=== PATIENT | female | born 1940 | race Caucasian/White ===

== ENCOUNTER 2017-11-03 20:35 | Observation (INO) | payer MEDICARE, OTHER ==
[~2017-11-03] VITALS: Ht 162.6 cm; Wt 45.0 kg
[2017-11-03 20:35] VITALS: BP_SYST 138; BP_SYST 167; BP_DIAS 66; BP_DIAS 87; PULSE 92; RESP 18; O2SAT 98; O2SAT 99
[~2017-11-03 20:35] MED LIST: AMLO5 PO; ENOX30P SQ; HYDR25TA5 PO; LISI10TA3 PO; MELA1TAB18 PO; SENN1TAB PO; TRAM50 PO
[2017-11-03] MEDS ORDERED: SODIUM CHLOR 0.9% 250 ML INJ 250 ML IV ONE (20:45)
[2017-11-03] MEDS ORDERED: SODIUM CHLORIDE 0.9% FLUSH 10 ML FLUSH IVF PRN (20:45)
[2017-11-03] MEDS ORDERED: ONDANSETRON HCL 4 MG/2 ML VIAL IV PUSH ONE (20:45)
[2017-11-03] MEDS ORDERED: NITROGLYCERIN 2% OINT 1 GM PACKET TOP ONE (20:45)
[2017-11-03] MEDS ORDERED: MORPHINE SULFATE 2 MG/ML INJ IV PUSH ONE ×3 (20:45→21:45)
--- NOTE | 2017-11-03 20:48 | PD ---
HPI Chief Complaint: Chest Pain Time Seen by Provider: 20:38 Travel History International Travel<30 days: No Contact w/Intl Traveler<30days: No Traveled to known affect area: No History of Present Illness HPI 77-year-old female presents to the emergency department from home for evaluation of sudden onset of retrosternal chest pain left-sided chest pain and left upper abdominal pain with prior history of thoracic aneurysm and abdominal aortic aneurysm. According to the patient who relays some of her history she has had previous repair of thoracic aortic aneurysm and continues to have abdominal aortic aneurysm that is being monitored. Last evaluation reportedly the aneurysm was 3 cm in size. Patient is unable to tell me when the last evaluation was performed. Patient's wall and floor tiler is Dr. Rosario. Patient has history of CAD with previous CABG CVA abdominal aortic aneurysm with report by medical record of prior repair valvular heart disease with valve replacement and hypertension. Patient is presently on Norvasc. Patient is not currently on a blood thinning agent reportedly. Patient did take 81 mg of aspirin prior to arrival to the emergency department and fire department provided the patient with a one-time dose of 81 mg aspirin and 1 sublingual nitroglycerin. Patient had a hypotensive response to the nitroglycerin was giving a 200 cc bolus of normal saline and presents normotensive with symmetric blood pressures bilaterally per EMS 120/80 right upper extremity and left upper extremity pain is reported as 10 over 10 in intensity at time of initial evaluation patient personally reports pain of 8/10 in intensity at this time and states that she feels improved. There is been no nausea or vomiting. Patient does complain of tenderness to the upper abdomen. An does complain of chest pain. No report of referred pain to the back mid scapular neck jaw or upper extremity's. PFSH Past Medical History Narrative Medical CABG AAA with reported repair valvular heart disease with valve replacement hysterectomy cardiac catheterization hypertension no tobacco use at this time previous history of daily tobacco use for 60 years occasional alcohol use; nursing notes reviewed Cardiac Catheterization: Yes Cardiovascular Problems: Yes Cerebrovascular Accident: Yes Diminished Hearing: No Endocrine: No Hypertension: Yes Musculoskeletal: Yes Neurologic: No Psychiatric: No Reproductive: No Respiratory: No Menopausal: Yes Past Surgical History Abdominal Aneurysm Repair: Yes Cardiac Surgery: Yes Gynecologic Surgery: Yes Hysterectomy: Yes Thoracic Surgery: No Valve Replacement: Yes Social History Alcohol Use: Yes ("A BEER A DAY") Tobacco Use: Yes (1/2PPD) Substance Use: No Allergies-Medications (Allergen,Severity, Reaction): Coded Allergies: codeine (Unverified Allergy, Severe, Wheezing, 11/03/17) Reported Meds & Prescriptions Reported Meds & Active Scripts Active Reported Amoxicillin 500 Mg Tab 500 Mg PO QID Aspirin 81 Mg Chew 81 Mg CHEW ONCE Aleve Arthritis (Naproxen Sodium) 220 Mg Tab 220 Mg PO BID Lovastatin 10 Mg Tab 10 Mg PO DAILY Amlodipine (Amlodipine Besylate) 10 Mg Tab 10 Mg PO DAILY Review of Systems Except as stated in HPI: all other systems reviewed are Neg Physical Exam Narrative GENERAL: Well-developed thin female in obvious discomfort no respiratory distress GCS 15 SKIN: Warm and dry. HEAD: Normocephalic. EYES: No scleral icterus. No injection or drainage. NECK: Supple, trachea midline. No JVD or lymphadenopathy. CARDIOVASCULAR: Regular rate and rhythm with 5/6 holosystolic murmur, gallops, or rubs. RESPIRATORY: Breath sounds equal bilaterally. No accessory muscle use. GASTROINTESTINAL: Abdomen soft, tender epigastric and left upper quadrant without palpable pulsatile mass, nondistended. MUSCULOSKELETAL: No cyanosis, or edema. Radial pulses 2+ to palpation bilateral dorsalis pedis pulses 2+ to palpation. BACK: Nontender without obvious deformity. No CVA tenderness. Data Data Last Documented VS Vital Signs Date Time Temp Pulse Resp B/P (MAP) Pulse Ox O2 Delivery O2 Flow Rate FiO2 11/03/17 21:36 87 16 151/79 (103) 100 Nasal Cannula 2.00 147/76 (99) Orders Orders Electrocardiogram (11/03/17 20:38) Basic Metabolic Panel (Bmp) (11/03/17 20:38) Ckmb (Isoenzyme) Profile (11/03/17 20:38) Complete Blood Count With Diff (11/03/17 20:38) Magnesium (Mg) (11/03/17 20:38) Prothrombin Time / Inr (Pt) (11/03/17 20:38) Act Partial Throm Time (Ptt) (11/03/17 20:38) Troponin I (11/03/17 20:38) Ecg Monitoring (11/03/17 20:38) Bilateral Bp Monitoring (11/03/17 20:38) Iv Access Insert/Monitor (11/03/17 20:38) Oximetry (11/03/17 20:38) Oxygen Administration (11/03/17 20:38) Nitroglycerin 2% Oint (Nitroglycerin 2% (11/03/17 20:45) Sodium Chloride 0.9% Flush (Ns Flush) (11/03/17 20:45) Cta Thor Abd Aorta W Iv C W3d (11/03/17 20:38) Ondansetron Inj (Zofran Inj) (11/03/17 20:45) Morphine Inj (Morphine Inj) (11/03/17 20:45) Type And Screen (11/03/17 20:38) Blood Product Administration (11/03/17 20:38) Sodium Chlor 0.9% 250 Ml Inj (Ns 250 Ml (11/03/17 20:45) Chest, Single Ap (11/03/17 20:41) Morphine Inj (Morphine Inj) (11/03/17 21:00) Iohexol 350 Inj (Omnipaque 350 Inj) (11/03/17 21:05) CKMB (11/03/17 20:46) CKMB% (11/03/17 20:46) Labetalol Inj (Trandate Inj) (11/03/17 21:45) Nitroglycerin-D5w 50 Mg/250 Ml (Nitrogly (11/03/17 21:45) Morphine Inj (Morphine Inj) (11/03/17 21:45) Admit Order (Ed Use Only) (11/03/17 ) Clinic Lpn / Telemetry MARION.Q8H (11/03/17 22:24) Diet Heart Healthy (11/04/17 Breakfast) Activity Bed Rest (11/03/17 22:24) Notify Dr: Other (11/03/17 22:24) Consult Vascular Surgery (11/03/17 ) Labs Laboratory Tests Test 11/03/17 20:46 White Blood Count 8.0 TH/MM3 Red Blood Count 3.39 MIL/MM3 Hemoglobin 9.9 GM/DL Hematocrit 29.5 % Mean Corpuscular Volume 87.1 FL Mean Corpuscular Hemoglobin 29.1 PG Mean Corpuscular Hemoglobin Concent 33.4 % Red Cell Distribution Width 13.7 % Platelet Count 220 TH/MM3 Mean Platelet Volume 7.7 FL Neutrophils (%) (Auto) 68.0 % Lymphocytes (%) (Auto) 20.3 % Monocytes (%) (Auto) 8.6 % Eosinophils (%) (Auto) 1.1 % Basophils (%) (Auto) 2.0 % Neutrophils # (Auto) 5.5 TH/MM3 Lymphocytes # (Auto) 1.6 TH/MM3 Monocytes # (Auto) 0.7 TH/MM3 Eosinophils # (Auto) 0.1 TH/MM3 Basophils # (Auto) 0.2 TH/MM3 CBC Comment DIFF FINAL Differential Comment Prothrombin Time 10.8 SEC Prothromb Time International Ratio 1.1 RATIO Activated Partial Thromboplast Time 21.5 SEC Blood Urea Nitrogen 36 MG/DL Creatinine 0.94 MG/DL Random Glucose 156 MG/DL Calcium Level 9.0 MG/DL Magnesium Level 2.3 MG/DL Sodium Level 139 MEQ/L Potassium Level 3.8 MEQ/L Chloride Level 102 MEQ/L Carbon Dioxide Level 30.2 MEQ/L Anion Gap 7 MEQ/L Estimat Glomerular Filtration Rate 58 ML/MIN Total Creatine Kinase 129 U/L Creatine Kinase MB 2.0 NG/ML Troponin I LESS THAN 0.02 NG/ML MDM Medical Decision Making Medical Screen Exam Complete: Yes Emergency Medical Condition: Yes Medical Record Reviewed: Yes Interpretation(s) EKG: Normal sinus rhythm rate 93 left ventricular hypertrophy with nonspecific ST-T changes artifact present no acute ST elevation or injury pattern change noted Last Impressions Chest X-Ray 11/03/172040 Signed Impressions: Service Date/Time: Friday, November 03, 2017 20:46 - CONCLUSION: 1. Stable thoracic aortic stent graft 2. Left subclavian stent. 3. Prosthetic aortic valve 4. No evidence of acute cardiopulmonary process. Easton Daniel MD Aorta CTA 11/03/172037 Signed Impressions: Service Date/Time: Friday, November 03, 2017 20:58 - CONCLUSION: 1. 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 2. Left subclavian stent. 3. Distal descending thoracic aorta abdominal aortic aneurysm with measurements given above. 4. Note a subacute rupture. 5. No evidence of acute cardiac pulmonary process or acute process in the abdomen. Easton Daniel MD CBC & BMP Diagram 11/03/17 20:46 Calcium Level 9.0, Magnesium Level 2.3 Vital Signs Date Time Temp Pulse Resp B/P (MAP) Pulse Ox O2 Delivery O2 Flow Rate FiO2 11/03/17 21:36 87 16 151/79 (103) 100 Nasal Cannula 2.00 147/76 (99) 11/03/17 20:35 92 18 167/87 (113) 98 Nasal Cannula 2.00 138/66 (90) 11/03/17 20:35 99 Nasal Cannula 2.00 11/03/17 20:35 18 99 Nasal Cannula 2.00 Troponin I: Less than 0.02, not elevated Differential Diagnosis Chest pain, ACS, CT, aneurysm rupture, aortic dissection, PE, pneumothorax, cholecystitis, pancreatitis, musculoskeletal pain Narrative Course 9:03 PM patient's case discussed with her power of traffic law attorney health care surrogate daughter Belgica Simons -- according to the daughter the patient has a history of thoracic aortic aneurysm repair as well as pig valve aortic valve replacement numerous years ago most recent evaluation of abdominal aortic aneurysm was 2 years ago at which time the aneurysm was measured at 3.8 cm. According to the daughter the patient was evaluated at [facility] by an aorta vascular specialist 2 years ago and at that time the specialist informed the daughter and the patient that elective repair of the aneurysm was not a feasible plan for the patient as she would not survive surgery as that was conveyed to the patient and the power of traffic law attorney daughter he was determined at that time by the family by the power of traffic law attorney/health care surrogate daughter Belgica Simons and the patient that she was to have no surgical intervention regarding the abdominal aortic aneurysm however the patient's daughter and power of traffic law attorney at this time states that should this become an emergency and the risk of her dying versus going an interventional a for potential repair of the aneurysm is eminent that the daughter the power of traffic law attorney states she wants everything done including emergency intervention and has been discussed with the daughter that she has are made the decision based on the aortic aneurysm specialist at [facility] that she is not a survivable canned electively with all things him optimal condition and the decision at that time was to be a nonsurgical candidate and no surgical intervention however the daughter Belgica Simons states that she does want surgery emergently if indicated or necessary. At 9:30 PM patient has returned from CAT scan with stable blood pressure in fact blood pressure again has increased Nitropaste increased to 1 inch to chest wall and additional morphine 2 mg IV administered. Patient rates pain 4/10 in intensity At 10:30 PM patient's daughter informed of all imaging results and information regarding vascular surgeon recommendation patient will be admitted for observation to have his service Critical Care Narrative Aggregate critical care time was 35 minutes. Time to perform other separately billable procedures was not included in the critical care time. My time did not include minutes spent treating any other patients simultaneously or on activities that did not directly contribute to the patient's treatment. The services I provided to this patient were to treat and/or prevent clinically significant deterioration that could result in: Hemorrhagic shock, cardiogenic shock, I provided critical care services requiring my management, as noted below: Chart data review, documentation time, medication orders and management, vital sign assessments/reviewing monitor data, ordering and reviewing lab tests, ordering and interpreting/reviewing x-rays and diagnostic studies, care of the patient and discussion of the patient with the admitting physicians. Physician Communication Physician Communication discussed with Dr Daniel; discussed with Dr Rodriguez; discussed with Dr Guardado [facility] service Diagnosis Primary Impression: Intractable pain Additional Impressions: Hypertension Thoracic aortic aneurysm without rupture Abdominal aortic aneurysm Admitting Information Admitting Physician Requests: Observation Susana Gannon MD Nov 03, 2017 20:48
[2017-11-03 21:02] LABS: AUTOMATED NEUTROPHIL # 5.5 TH/MM3 (1.8-7.7); BASOPHIL # 0.2 TH/MM3 (0-0.2); EOSINOPHIL # 0.1 TH/MM3 (0-0.4); EOSINOPHIL % 1.1 % (0.0-4.0); HEMATOCRIT 29.5 % (35.0-46.0); HEMOGLOBIN 9.9 GM/DL (11.6-15.3); LYMPH % 20.3 % (9.0-44.0); LYMPHOCYTE # 1.6 TH/MM3 (1.0-4.8); MEAN CELL VOLUME 87.1 FL (80.0-100.0); MEAN CORPUSCULAR HEMOGLOBIN 29.1 PG (27.0-34.0); MEAN CORPUSCULAR HGB CONC 33.4 % (32.0-36.0); MEAN PLATELET VOLUME 7.7 FL (7.0-11.0); MONO % 8.6 % (0.0-8.0); MONOCYTE # 0.7 TH/MM3 (0-0.9); PLATELET COUNT 220 TH/MM3 (150-450); RED BLOOD COUNT 3.39 MIL/MM3 (4.00-5.30); RED CELL DISTRIBUTION WIDTH 13.7 % (11.6-17.2)
[2017-11-03] MEDS ORDERED: IOHEXOL 350 MG/ML 10 ML VIAL (for RAD DIAG) IVCONTRAST ONE (21:05)
[2017-11-03 21:15] LABS: INTERNATIONAL NORMALIZED RATIO 1.1 RATIO; PROTHROMBIN TIME - PATIENT 10.8 SEC (9.8-11.6)
--- NOTE | 2017-11-03 21:15 | RADRPT ---
EXAM DATE/TIME: 11/03/2017 20:46 [facility] COMPARISON: CHEST SINGLE AP, August 26, 2016, 23:43. INDICATIONS : Chest pain MEDICAL HISTORY : Cardiovascular disease. SURGICAL HISTORY : CABG. Abdominal aortic aneurysm repair. ENCOUNTER: Initial ACUITY: 1 day PAIN SCORE: 10/10 LOCATION: Bilateral chest inferior FINDINGS: Lungs are well-expanded and clear. Thoracic aortic stent graft is noted. Heart and mediastinal structures are stable. Prostatic aortic valve is identified. Heart remains norm al in size. Osseous structures are intact. CONCLUSION: 1. Stable thoracic aortic stent graft 2. Left subclavian stent. 3. Prosthetic aortic valve 4. No evidence of acute cardiopulmonary process. Easton Daniel MD on November 03, 2017 at 21:11 Board Certified Radiologist. This report was verified electronically.
[2017-11-03 21:22] LABS: BICARBONATE 30.2 MEQ/L (21.0-32.0); BLOOD UREA NITROGEN 36 MG/DL (7-18); CHLORIDE 102 MEQ/L (98-107); CREATININE 0.94 MG/DL (0.50-1.00); GLOMERULAR FILTRATION RATE 58 ML/MIN (>89); GLUCOSE,RANDOM 156 MG/DL (74-106); MAGNESIUM 2.3 MG/DL (1.5-2.5); SODIUM (NA) 139 MEQ/L (136-145)
[2017-11-03] MEDS ORDERED: LOVA10TA PO (21:22)
[2017-11-03] MEDS ORDERED: AMOX500T PO (21:22)
[2017-11-03] MEDS ORDERED: ASPI-516 CHEW (21:22)
[2017-11-03] MEDS ORDERED: ALEV220T14 PO (21:22)
[2017-11-03] MEDS ORDERED: AMLO10TA2 PO (21:22)
[2017-11-03 21:26] LABS: TROPONIN I LESS THAN 0.02 NG/ML (0.02-0.05)
[2017-11-03 21:36] VITALS: BP_SYST 147; BP_SYST 151; BP_DIAS 76; BP_DIAS 79; PULSE 87; RESP 16; O2SAT 100
--- NOTE | 2017-11-03 21:41 | RADRPT ---
EXAM DATE/TIME: 11/03/2017 20:58 [facility] COMPARISON: No previous studies available for comparison. INDICATIONS : Chest pain with prior aneurysm; evaluate aneurysm repair. IV CONTRAST: 96 cc Omnipaque 350 (iohexol) IV RADIATION DOSE: 9.65 CTDIvol (mGy) MEDICAL HISTORY : Aneurysm, abdominal. Cardiovascular disease Cerebrovascular disease. SURGICAL HISTORY : Hysterectomy. Valve repair ENCOUNTER: Initial ACUITY: 1 day PAIN SCALE: 7/10 LOCATION: chest TECHNIQUE: Volumetric scanning was performed using a multi-row detector CT scanner. The data was post processed with a variety of visualization algorithms including full volume maximum intensity projection, multi -planar sliding thin slab reformation, curved planar reformation, and surface rendering techniques. Using automated exposure control and adjustment of the mA and/or kV according to patient size, radiat ion dose was kept as low as reasonably achievable to obtain optimal diagnostic quality images. DICOM format image data is available electronically for review and comparison. FINDINGS: Thoracic aorta: An endovascular stent graft is identified extending from the level of the left subclavian artery to t he mid to distal descending thoracic aorta. A left subclavian graft is identified extending from the subclavian origin. Along the superior aspect of the thoracic stent graft there is filling of what appears to be a pseudo aneurysm measuring 4.1 x 6.7 cm in size. This is likely the result of a focal endoleak. Significant aneurysmal enlargement is noted of the distal descending thoracic aorta and suprarenal ab dominal aorta. The distal descending thoracic aorta measures 5.6 cm in diameter. Abdominal aorta: Aneurysmal enlargement is identified of the suprarenal and infrarenal abdominal aorta. The suprarenal abdominal aorta measures 5.3 cm at the level of the celiac artery, 4.8 cm at the level of renal aubree campos and 5.7 cm in the infrarenal segment. There are branches are patent and well opacified. Calcific atherosclerotic disease is identified in the iliac vessels. Nonvascular findings: Lungs are clear without evidence of acute process. Liver appears diffusely hypodense. The pancreas, adrenal glands and kidneys are unremarkable. There is no evidence of ileus free air or mass effect. CONCLUSION: 1. 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 2. Left subclavian stent. 3. Distal descending thoracic aorta abdominal aortic aneurysm with measurements given above. 4. Note a subacute rupture. 5. No evidence of acute cardiac pulmonary process or acute process in the abdomen. Easton Daniel MD on November 03, 2017 at 21:25 Board Certified Radiologist. This report was verified electronically.
[2017-11-03] MEDS ORDERED: LABETALOL HCL 100 MG/20 ML VIAL IV PUSH ONE (21:45)
[2017-11-03] MEDS ORDERED: NITROGLYCERIN-D5W 50 MG/250 ML 250 ML IV ONE (21:45)
[2017-11-03 22:30] VITALS: BP 133/73; PULSE 82; RESP 18; O2SAT 99
--- NOTE | 2017-11-03 22:35 | HHI.HP ---
[facility] Admission Diagnosis Intractable pain; h/o CAD; h/o TAA/AAA Diagnoses: (1) Intractable pain Diagnosis: Principal (2) Chest pain Diagnosis: Principal (3) Thoracic aortic aneurysm without rupture Diagnosis: Principal (4) Dehydration Diagnosis: Principal Travel History International Travel<30 Days: No Contact w/Intl Traveler <30 Da: No Traveled to Known Affected Are: No History of Present Illness This is a 77-year-old female with a PMH of HTN, AAA Repair, Aortic Valve Replacement, CABG and Tobacco Abuse was brought to the ER by EMS secondary to complaints of acute onset of chest pain and abdominal pain. Pt reports substernal chest pain, constant, severe, 8/10, non-radiating. Abdominal pain is generalized, intermittent, and 8/10. No associated nausea or vomiting. Denies SOB, fever or sick contacts. On arrival, BP 167/87, HR 92, O2 sat 99% on 2L NC. CBC essentially at baseline. Chemistry unremarkable except for BUN 36, GFR 58. Troponin negative. INR 1.1. UA negative. CXR was stable thoracic aortic stent graft, left subclavian stent, prosthetic aortic valve, no acute process. 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 Dr. Rodriguez consulted by ER physician and images reviewed, no acute leak or rupture noted, pt not a candidate for surgical intervention, c/o chest pain not felt to be secondary to aneurysm. Review of Systems Except as stated in HPI: all other systems reviewed are Neg ROS: 14 point review of systems otherwise negative. Past Family Social History Past Medical History PMH: HTN, AAA Repair, Aortic Valve Replacement, CABG and Tobacco Abuse Past Surgical History PAST SURGICAL HISTORY: Hysterectomy, Aortic Valve Replacement, AAA Repair Allergies: Coded Allergies: codeine (Unverified Allergy, Severe, Wheezing, 11/04/17) Family History PAST FAMILY HISTORY: Reviewed. No h/o DM or CAD Social History PAST SOCIAL HISTORY: Drinks 1 beer daily. Smokes 1/2ppd. Negative for drugs. Physical Exam Vital Signs Vital Signs Date Time Temp Pulse Resp B/P (MAP) Pulse Ox O2 Delivery O2 Flow Rate FiO2 11/03/17 21:36 87 16 151/79 (103) 100 Nasal Cannula 2.00 147/76 (99) 11/03/17 20:35 92 18 167/87 (113) 98 Nasal Cannula 2.00 138/66 (90) 11/03/17 20:35 99 Nasal Cannula 2.00 11/03/17 20:35 18 99 Nasal Cannula 2.00 Physical Exam PE: GENERAL: Pleasant elderly, thin, white female in no acute distress. HEENT: PERRLA, EOMI. No scleral icterus or conjunctival pallor. No lid lag or facial droop. CARDIOVASCULAR: Regular rate and rhythm. No obvious murmurs to auscultation. No chest tenderness to palpation. RESPIRATORY: No obvious rhonchi or wheezing. Clear to auscultation. Breath sounds equal bilaterally. GASTROINTESTINAL: Abdomen soft, generalized tenderness to palpation, nondistended. BS normal. MUSCULOSKELETAL: Extremities without clubbing, cyanosis, or edema. No obvious deformities. NEUROLOGICAL: Awake, alert and oriented x4. No focal neurologic deficits. Moving both upper and lower extremities spontaneously. Laboratory Laboratory Tests Test 11/03/17 20:46 White Blood Count 8.0 Red Blood Count 3.39 Hemoglobin 9.9 Hematocrit 29.5 Mean Corpuscular Volume 87.1 Mean Corpuscular Hemoglobin 29.1 Mean Corpuscular Hemoglobin Concent 33.4 Red Cell Distribution Width 13.7 Platelet Count 220 Mean Platelet Volume 7.7 Neutrophils (%) (Auto) 68.0 Lymphocytes (%) (Auto) 20.3 Monocytes (%) (Auto) 8.6 Eosinophils (%) (Auto) 1.1 Basophils (%) (Auto) 2.0 Neutrophils # (Auto) 5.5 Lymphocytes # (Auto) 1.6 Monocytes # (Auto) 0.7 Eosinophils # (Auto) 0.1 Basophils # (Auto) 0.2 CBC Comment DIFF FINAL Differential Comment Prothrombin Time 10.8 Prothromb Time International Ratio 1.1 Activated Partial Thromboplast Time 21.5 Blood Urea Nitrogen 36 Creatinine 0.94 Random Glucose 156 Calcium Level 9.0 Magnesium Level 2.3 Sodium Level 139 Potassium Level 3.8 Chloride Level 102 Carbon Dioxide Level 30.2 Anion Gap 7 Estimat Glomerular Filtration Rate 58 Total Creatine Kinase 129 Creatine Kinase MB 2.0 Troponin I LESS THAN 0.02 Result Diagram: 11/03/17204511/03/172045 Chrisrinromana VTE Risk Assessment Etta VTE Risk Assessment: No/Low Risk (score <= 1) Chrisrini Risk Assessment Model Point Value = 1 Point Value = 2 Point Value = 3 Point Value = 5 Age 41-60 Minor surgery BMI > 25 kg/m2 Swollen legs Varicose veins or History of unexplained or recurrent spontaneous Oral contraceptives or hormone replacement Sepsis (< 1 month) Serious lung disease, including pneumonia (< 1 month) Abnormal pulmonary function Acute myocardial infarction Congestive heart failure (< 1 month) History of inflammatory bowel disease Medical patient at bed rest Age 61-74 Arthroscopic surgery Major open surgery (> 45 min) Laparoscopic surgery (> 45 min) Malignancy Confined to bed (> 72 hours) Immobilizing plaster cast Central venous access Age >= 75 History of VTE Family history of VTE Factor V Leiden Prothrombin [id number] Lupus anticoagulant Anticardiolipin antibodies Elevated serum homocysteine Heparin-induced thrombocytopenia Other congenital or acquired thrombophilia Stroke (< 1 month) Elective arthroplasty Hip, pelvis, or leg fracture Acute spinal cord injury (< 1 month) Prophylaxis Regimen Total Risk Factor Score Risk Level Prophylaxis Regimen 0-1 Low Early ambulation 2 Moderate Order ONE of the following: *Sequential Compression Device (SCD) *Heparin 5000 units SQ BID 3-4 Higher Order ONE of the following medications: *Heparin 5000 units SQ TID *Enoxaparin/Lovenox 40 mg SQ daily (WT < 150 kg, CrCl > 30 mL/min) *Enoxaparin/Lovenox 30 mg SQ daily (WT < 150 kg, CrCl > 10-29 mL/min) *Enoxaparin/Lovenox 30 mg SQ BID (WT < 150 kg, CrCl > 30 mL/min) AND/OR *Sequential Compression Device (SCD) 5 or more Highest Order ONE of the following medications: *Heparin 5000 units SQ TID (Preferred with Epidurals) *Enoxaparin/Lovenox 40 mg SQ daily (WT < 150 kg, CrCl > 30 mL/min) *Enoxaparin/Lovenox 30 mg SQ daily (WT < 150 kg, CrCl > 10-29 mL/min) *Enoxaparin/Lovenox 30 mg SQ BID (WT < 150 kg, CrCl > 30 mL/min) AND *Sequential Compression Device (SCD) Assessment and Plan Problem List: (1) Intractable pain ICD Code: R52 - Pain, unspecified Status: Acute (2) Chest pain ICD Code: R07.9 - Chest pain, unspecified (3) Dehydration ICD Code: E86.0 - Dehydration (4) Thoracic aortic aneurysm without rupture ICD Code: I71.2 - Thoracic aortic aneurysm, without rupture Status: Acute Assessment and Plan A/P: 1. Intractable Pain: c/o chest pain and abdominal pain, severe, non- radiating. S/p multiple doses of Dilaudid IV w/ minimal improvement. CTA Aorta w/ no acute abdominal or thoracic abnormality to explain pain complaints. Continue w/ analgesics/antiemetics as needed. 2. Chest Pain: acute onset of substernal chest pain, initial trop negative. R /o ACS, check serial cardiac enzymes, NTG/Morphine prn as needed, ASA, Statin, Metoprolol. 3. 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 Dr. Rodriguez consulted and has reviewed imaging, no acute rupture or leak, no emergent surgical intervention warranted, pt extremely high risk for elective intervention. Optimize BP, keep <140's systolic. Analgesics as needed. 4. Dehydration: GFR 58, BUN 36, IVF for hydration, repeat labs in am. 5. DVT Prophylaxis: SCD/Teds 6. Social work for d/c planning as needed. 7. Labs/records/imaging reviewed by me, case discussed at length w/ ER physician. Sima Guardado MD Nov 03, 2017 22:35
[2017-11-03] MEDS ORDERED: MORPHINE SULFATE 2 MG/ML INJ IV PUSH PRN (22:45)
[2017-11-03] MEDS ORDERED: SODIUM CHLORIDE 0.9% FLUSH 10 ML FLUSH IV FLUSH PRN (22:45)
[2017-11-03] MEDS ORDERED: ASPIRIN 81 MG CHEW TAB CHEW SCH (22:45)
[2017-11-03] MEDS ORDERED: LACTULOSE SYRUP 20 GM/30 ML CUP PO PRN (22:45)
[2017-11-03] MEDS ORDERED: ACETAMINOPHEN 325 MG TAB PO PRN (22:45)
[2017-11-03] MEDS ORDERED: SENNOSIDES 8.6 MG TAB PO PRN (22:45)
[2017-11-03] MEDS ORDERED: ONDANSETRON HCL 4 MG/2 ML VIAL IVP PRN (22:45)
[2017-11-03] MEDS ORDERED: MAGNESIUM HYDROXIDE SUSP 30 ML CUP PO PRN (22:45)
[2017-11-03] MEDS ORDERED: BISACODYL 10 MG SUPP RECTAL PRN (22:45)
[2017-11-03] MEDS: MORPHINE SULFATE 2 MG/ML INJ IV PUSH PRN (23:36)
[2017-11-03 23:51] VITALS: BP 135/67; PULSE 86; RESP 16; O2SAT 96
[2017-11-03 23:51] LABS: BILIRUBIN, URINE NEG (NEG); BLOOD, URINE SMALL (NEG); GLUCOSE,URINE NEG (NEG); KETONE, URINE NEG (NEG); NITRITE,URINE NEG (NEG); PH, URINE 7.5 (5.0-8.5); URINE COLOR LIGHT-YELLOW (YELLW/STRAW); URINE LEUKOCYTE ESTERASE NEG (NEG)
[2017-11-04] VITALS (8 sets, daily range): BP systolic 124–152; BP diastolic 71–90; PULSE 68–93; RESP 17–18; TEMP 96.2–98.7; O2SAT 93–97
[2017-11-04] MEDS: MORPHINE SULFATE 2 MG/ML INJ IV PUSH PRN ×5 (04:02→20:11)
[2017-11-04] MEDS: DOCUSATE SODIUM 50 MG/SENNA 8.6 MG TAB PO SCH ×2 (08:30→23:27)
[2017-11-04] MEDS: PRAVASTATIN SOD 10 MG TAB PO SCH (08:30)
[2017-11-04] MEDS: METOPROLOL TARTRATE 25 MG TAB PO SCH ×2 (08:30→23:25)
[2017-11-04] MEDS: SODIUM CHLORIDE 0.9% FLUSH 10 ML FLUSH IV FLUSH SCH ×2 (08:30→23:26)
[2017-11-04] MEDS ORDERED: MORPHINE SULFATE 2 MG/ML INJ IV PRN (09:00)
--- NOTE | 2017-11-04 09:08 | PD.VS.CON ---
History of Present Illness Chief Complaint: TAAA Consult Requested by: ED History of Present Illness 77 yo lady adm with abdominal and back pain and known TAAA. In 2010, she had a TEVAR and L SCA chimney stent. She also has a history of open infrarenal AAA repair. She has 24h of back and abdominal pain and presents for evaluation. She has previously been told that she is not a surgical candidate because of comorbidities. She lives with her son and performs some ADL. She can not walk up a flight of stairs. She has never had this type of pain before. Past/Family/Social History Past Medical History AAA TAAA HTN CAD CVOD w/ CVA x 4 Past Surgical History PABLO AAA TEVAR with L SCA stent AVR/CABG Social History + tobacco and + EtOH Family History NC Home Medications Reported Medications Amoxicillin (Amoxicillin) 500 Mg Tab, 500 MG PO QID for Infection, TAB 0 Refills 11/03/17 Aspirin (Aspirin) 81 Mg Chew, 81 MG CHEW ONCE, #1 TAB 0 Refills 11/03/17 Naproxen Sodium (Aleve Arthritis) 220 Mg Tab, 220 MG PO BID, TAB 11/03/17 Lovastatin (Lovastatin) 10 Mg Tab, 10 MG PO DAILY for Cholesterol Management, # 30 TAB 0 Refills 11/03/17 Amlodipine (Amlodipine) 10 Mg Tab, 10 MG PO DAILY for Blood Pressure Management , #30 TAB 0 Refills 11/03/17 Discontinued Reported Medications Melatonin (Melatonin) 10 Mg Tab, 10 MG PO HS Y for SLEEP, TAB 0 Refills 08/29/16 Discontinued Scripts Tramadol (Ultram) 50 Mg Tab, 50 MG PO Q6H Y for PAIN SCALE 3 TO 6, #10 TAB 0 Refills Prov:Gino Cox MD 09/01/16 Sennosides-Docusate Sodium (Senna Plus 8.6-50 mg) 1 Tab Tab, 1 TAB PO BID for Constipation, #20 TAB Prov:Gino Cox MD 09/01/16 Lisinopril (Lisinopril) 10 Mg Tab, 10 MG PO DAILY for Blood Pressure Management , #30 TAB Prov:Gino Cox MD 09/01/16 Hydrochlorothiazide (Hydrochlorothiazide) 25 Mg Tab, 25 MG PO DAILY for Blood Pressure Management, #30 TAB Prov:Gino Cox MD 09/01/16 Amlodipine (Norvasc) 5 Mg Tab, 2.5 MG PO DAILY for Blood Pressure Management, # 30 TAB Prov:Gino Cox MD 09/01/16 Enoxaparin Inj (Lovenox Inj) 30 Mg/0.3 Ml Syr, 30 MG SQ DAILY for Blood Clot Prevention, #30 SYRINGE 0 Refills Prov:Jak Brownlee MD 08/27/16 Coded Allergies: codeine (Unverified Allergy, Severe, Wheezing, 11/04/17) Review of Systems Constitutional: COMPLAINS OF: Change in appetite Cardiovascular: COMPLAINS OF: Dyspnea on Exertion Gastrointestinal: COMPLAINS OF: Abdominal pain Musculoskeletal: COMPLAINS OF: Back pain Physical Exam Vitals/I&O Date Time Temp Pulse Resp B/P (MAP) Pulse Ox O2 Delivery O2 Flow Rate FiO2 11/04/17 08:00 98.7 81 18 134/75 (94) 93 11/04/17 04:45 98.5 80 18 124/71 (88) 95 11/04/17 01:00 87 11/04/17 00:15 98.2 93 18 128/71 (90) 96 11/04/17 00:04 11/03/17 23:51 86 16 135/67 (89) 96 Room Air 11/03/17 22:30 82 18 133/73 (93) 99 Room Air 11/03/17 21:36 87 16 151/79 (103) 100 Nasal Cannula 2.00 147/76 (99) 11/03/17 20:35 92 18 167/87 (113) 98 Nasal Cannula 2.00 138/66 (90) 11/03/17 20:35 99 Nasal Cannula 2.00 11/03/17 20:35 18 99 Nasal Cannula 2.00 11/04/17 11/04/17 11/04/17 07:00 15:00 23:00 Intake Total 240 ml Balance 240 ml Neuro: thin, frail female in mild distress HEENT: anicteric sclera Neck: thin, trachea midline Heart: reg rate Lungs: distant BS Abdomen: midline incision healed; palpable AAA, not tender to palpation Laboratory Tests Test 11/03/17 20:46 11/03/17 23:33 11/04/17 03:47 White Blood Count 8.0 Red Blood Count 3.39 Hemoglobin 9.9 Hematocrit 29.5 Mean Corpuscular Volume 87.1 Mean Corpuscular Hemoglobin 29.1 Mean Corpuscular Hemoglobin Concent 33.4 Red Cell Distribution Width 13.7 Platelet Count 220 Mean Platelet Volume 7.7 Neutrophils (%) (Auto) 68.0 Lymphocytes (%) (Auto) 20.3 Monocytes (%) (Auto) 8.6 Eosinophils (%) (Auto) 1.1 Basophils (%) (Auto) 2.0 Neutrophils # (Auto) 5.5 Lymphocytes # (Auto) 1.6 Monocytes # (Auto) 0.7 Eosinophils # (Auto) 0.1 Basophils # (Auto) 0.2 CBC Comment DIFF FINAL Differential Comment Prothrombin Time 10.8 Prothromb Time International Ratio 1.1 Activated Partial Thromboplast Time 21.5 Blood Urea Nitrogen 36 Creatinine 0.94 Random Glucose 156 Calcium Level 9.0 Magnesium Level 2.3 Sodium Level 139 Potassium Level 3.8 Chloride Level 102 Carbon Dioxide Level 30.2 Anion Gap 7 Estimat Glomerular Filtration Rate 58 Total Creatine Kinase 129 Creatine Kinase MB 2.0 Troponin I LESS THAN 0.02 LESS THAN 0.02 Urine Color LIGHT-YELLOW Urine Turbidity CLEAR Urine pH 7.5 Urine Specific [place] 1.039 Urine Protein TRACE Urine Glucose (UA) NEG Urine Ketones NEG Urine Occult Blood SMALL Urine Nitrite NEG Urine Bilirubin NEG Urine Urobilinogen LESS THAN 2.0 Urine Leukocyte Esterase NEG Urine RBC 11 Urine WBC LESS THAN 1 Microscopic Urinalysis Comment CULT NOT INDICATED Last 48 hours Impressions Chest X-Ray [id number]/03/[id number] Signed Impressions: Service Date/Time: Friday, November 03, 2017 20:46 - CONCLUSION: 1. Stable thoracic aortic stent graft 2. Left subclavian stent. 3. Prosthetic aortic valve 4. No evidence of acute cardiopulmonary process. Easton Daniel MD Aorta CTA [id number]/03/[id number] Signed Impressions: Service Date/Time: Friday, November 03, 2017 20:58 - CONCLUSION: 1. 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 2. Left subclavian stent. 3. Distal descending thoracic aorta abdominal aortic aneurysm with measurements given above. 4. Note a subacute rupture. 5. No evidence of acute cardiac pulmonary process or acute process in the abdomen. Easton Daniel MD Assessment and Plan Plan She essentially has a type II TAAA that starts at the origin of the carotids and extends to the abdominal aorta. The previously placed TEVAR has an Ia endoleak and essentially is an unrepaired aneurysm. The paravisceral TAAA is large. Overall there is no evidence of rupture. However, I am not sure this is not causing her pain. She is not an operative candidate as I think the mortality of the procedure would be extra-ordinarily high and the chance of returning to her current level of near independence is zero. I had a long talk with the patient and at her request, her daughter via the telephone ([phone]). Even if she were to frankly rupture, I would not offer repair, and everyone is in agreement. To that end, I recommend pain control and Hospice. The daughter is driving up today. I discussed a DNR/DNI with the patient and the daughter. The daughter is in agreement but the patient, whom I believe to be competent at present, wants to hold off signing until the daughter gets here. Discussed with Dr. Light, medical attending, as well. Ms. Alexandra and her daughters have my telephone numbers if either needs anything. Isreal Rodriguez MD FACS [employer] instructional services librarian [facility] [phone] Isreal Rodriguez MD Nov 04, 2017 09:08
[2017-11-04 10:53] LABS: BASOPHIL # 0.1 TH/MM3 (0-0.2); BASOPHIL % 2.1 % (0.0-2.0); EOSINOPHIL # 0.1 TH/MM3 (0-0.4); EOSINOPHIL % 1.2 % (0.0-4.0); HEMATOCRIT 27.3 % (35.0-46.0); HEMOGLOBIN 9.2 GM/DL (11.6-15.3); LYMPH % 17.9 % (9.0-44.0); LYMPHOCYTE # 1.1 TH/MM3 (1.0-4.8); MEAN CELL VOLUME 87.2 FL (80.0-100.0); MEAN CORPUSCULAR HEMOGLOBIN 29.3 PG (27.0-34.0); MEAN CORPUSCULAR HGB CONC 33.6 % (32.0-36.0); MEAN PLATELET VOLUME 7.6 FL (7.0-11.0); MONO % 10.6 % (0.0-8.0); MONOCYTE # 0.6 TH/MM3 (0-0.9); NEUT % 68.2 % (16.0-70.0); PLATELET COUNT 173 TH/MM3 (150-450); RED BLOOD COUNT 3.13 MIL/MM3 (4.00-5.30); RED CELL DISTRIBUTION WIDTH 13.8 % (11.6-17.2); WHITE BLOOD COUNT 5.9 TH/MM3 (4.0-11.0)
[2017-11-04 11:22] LABS: ALBUMIN 3.8 GM/DL (3.4-5.0); ALT (GPT) 16 U/L (10-53); AST (GOT) 19 U/L (15-37); BICARBONATE 29.4 MEQ/L (21.0-32.0); BLOOD UREA NITROGEN 27 MG/DL (7-18); CALCIUM 8.6 MG/DL (8.5-10.1); CHLORIDE 105 MEQ/L (98-107); CREATININE 0.82 MG/DL (0.50-1.00); GLOMERULAR FILTRATION RATE 68 ML/MIN (>89); GLUCOSE,RANDOM 126 MG/DL (74-106); SODIUM (NA) 141 MEQ/L (136-145)
[2017-11-04 11:26] LABS: ALKALINE PHOSPHATASE 72 U/L (45-117); TOTAL BILIRUBIN ADULT 0.3 MG/DL (0.2-1.0); TOTAL PROTEIN 7.3 GM/DL (6.4-8.2); TROPONIN I 0.02 NG/ML (0.02-0.05)
[2017-11-04] MEDS ORDERED: ACETAMINOPHEN/HYDROcodone 325 MG/5 MG TAB PO PRN (11:30)
[2017-11-04] MEDS: PANTOPRAZOLE SODIUM 40 MG VIAL IV PUSH SCH ×2 (12:17→23:27)
--- NOTE | 2017-11-04 12:42 | EKG ---
Date Performed: 11/03/2017 Time Performed: 20:35:03 PTAGE: 77 years EKG: Sinus rhythm LEFT VENTRICULAR HYPERTROPHY AND ST-T CHANGE ABNORMAL ECG INTERPRETATION BASED ON A DEFAULT AGE OF 4 0 YEARS PREVIOUS TRACING : 08/27/2016 03.35 Compared to prior tracing no significant change DOCTOR: Romero Banks Interpretating Date/Time 11/04/2017 12:42:07
--- NOTE | 2017-11-04 13:25 | HHI.PR ---
Subjective Remarks Follow-up for abdominal pain Pain more in the epigastric area. Patient stated that the IV pain medication only works for 1 hour. Denying nausea or vomiting. She stated that she had the pain but it's worsen in the past few days. Denied any chest pain, shortness of breathing or palpitations. Objective Vitals Vital Signs Date Time Temp Pulse Resp B/P (MAP) Pulse Ox O2 Delivery O2 Flow Rate FiO2 11/04/17 13:17 18 11/04/17 12:00 96.2 70 18 140/78 (98) 95 11/04/17 10:16 18 11/04/17 08:00 98.7 81 18 134/75 (94) 93 11/04/17 04:45 98.5 80 18 124/71 (88) 95 11/04/17 01:00 87 11/04/17 00:15 98.2 93 18 128/71 (90) 96 11/04/17 00:04 11/03/17 23:51 86 16 135/67 (89) 96 Room Air 11/03/17 22:30 82 18 133/73 (93) 99 Room Air 11/03/17 21:36 87 16 151/79 (103) 100 Nasal Cannula 2.00 147/76 (99) 11/03/17 20:35 92 18 167/87 (113) 98 Nasal Cannula 2.00 138/66 (90) 11/03/17 20:35 99 Nasal Cannula 2.00 11/03/17 20:35 18 99 Nasal Cannula 2.00 I/O 11/03/17 11/03/17 11/03/17 11/04/17 11/04/17 11/04/17 07:00 15:00 23:00 07:00 15:00 23:00 Intake Total 240 ml Balance 240 ml Intake Oral 240 ml # Voids 2 # Bowel Movements 0 Result Diagram: 11/04/17 1016 11/04/17 1016 Objective Remarks GENERAL: very thin lady in NAD EYES: No scleral icterus. No injection or drainage. pinpoint pupils. NECK: Supple, trachea midline. No JVD or lymphadenopathy. CARDIOVASCULAR: Regular rate and rhythm without murmurs, gallops, or rubs. RESPIRATORY: Breath sounds equal bilaterally. No accessory muscle use. GASTROINTESTINAL: Abdomen soft, nondistended. + TTP in the epigastric area. negative for any peritoneal signs. Medications and IVs Current Medications Nitroglycerin (Nitroglycerin 2% Oint) 0.5 inch ONCE ONCE TOP Last administered on 11/03/17at 21:26; Start 11/03/17 at 20:45; Stop 11/03/17 at 21:37; Status DC Sodium Chloride (NS Flush) 2 ml UNSCH PRN IVF FLUSH AFTER USING IV ACCESS; Start 11/03/17 at 20:45; Stop 11/04/17 at 11:44; Status DC Ondansetron HCl (Zofran Inj) 4 mg ONCE ONCE IV PUSH Last administered on at 21:26; Start 11/03/17 at 20:45; Stop 11/03/17 at 20:46; Status DC Morphine Sulfate (Morphine Inj) 2 mg ONCE ONCE IV PUSH Last administered on 11/03/17at 21:25; Start 11/03/17 at 20:45; Stop 11/03/17 at 20:46; Status DC Sodium Chloride 250 ml @ 15 mls/hr ONCE ONCE IV ; Start 11/03/17 at 20:45; Stop 11/04/17 at 13:24 Morphine Sulfate (Morphine Inj) 2 mg ONCE ONCE IV PUSH Last administered on 11/03/17at 21:30; Start 11/03/17 at 21:00; Stop 11/03/17 at 21:01; Status DC Iohexol (Omnipaque 350 Inj) 96 ml STK-MED ONCE IVCONTRAST Last administered on 11/03/17at 21:05; Start 11/03/17 at 21:05; Stop 11/03/17 at 21:06; Status DC Labetalol HCl (Trandate Inj) 10 mg ONCE ONCE IV PUSH ; Start 11/03/17 at 21:45; Stop 11/03/17 at 21:46; Status DC Nitroglycerin/ Dextrose 250 ml @ 0 mls/hr TITRATE ONCE IV ; Start 11/03/17 at 21 :45; Stop 11/03/17 at 21:46; Status DC Morphine Sulfate (Morphine Inj) 2 mg ONCE ONCE IV PUSH ; Start 11/03/17 at 21:45 ; Stop 11/03/17 at 21:46; Status DC Metoprolol Tartrate (Lopressor) 25 mg Q12HR PO Last administered on 11/04/17at 08 :30; Start 11/04/17 at 09:00 Sodium Chloride (NS Flush) 2 ml UNSCH PRN IV FLUSH FLUSH AFTER USING IV ACCESS Last administered on 11/04/17at 04:02; Start 11/03/17 at 22:45 Sodium Chloride (NS Flush) 2 ml BID IV FLUSH Last administered on 11/04/17at 08: 30; Start 11/04/17 at 09:00 Ondansetron HCl (Zofran Inj) 4 mg Q6H PRN IVP NAUSEA OR VOMITING; Start at 22:45 Acetaminophen (Tylenol) 650 mg Q6H PRN PO FEVER/PAIN SCALE 1 TO 2; Start at 22:45 Morphine Sulfate (Morphine Inj) 1 mg Q3H PRN IV PUSH Pain 3-5; Start 11/03/17 at 22:45; Stop 11/04/17 at 09:49; Status DC Morphine Sulfate (Morphine Inj) 2 mg Q3H PRN IV PUSH Pain 6-10 Last administered on 11/04/17at 10:11; Start 11/03/17 at 22:45; Stop 11/04/17 at 11:20; Status DC Senna/Docusate Sodium (Mariangel-Colace) 1 tab BID PO Last administered on 11/04/17at 08:30; Start 11/04/17 at 09:00 Magnesium Hydroxide (Milk Of Magnesia Liq) 30 ml Q12H PRN PO Mild constipation ; Start 11/03/17 at 22:45 Sennosides (Senokot) 17.2 mg Q12H PRN PO Moderate constipation; Start 11/03/17 at 22:45 Bisacodyl (Dulcolax Supp) 10 mg DAILY PRN RECTAL SEVERE CONSITIPATION; Start at 22:45 Lactulose (Lactulose Liq) 30 ml DAILY PRN PO SEVERE CONSITIPATION; Start at 22:45 Amlodipine Besylate (Norvasc) 10 mg DAILY PO Last administered on 11/04/17at 08: 30; Start 11/04/17 at 09:00 Aspirin (Aspirin Chew) 81 mg ONCE CHEW ; Start 11/03/17 at 22:45; Stop 11/03/17 at 23:59; Status DC Pravastatin Sodium (Pravachol) 10 mg DAILY PO Last administered on 11/04/17at 08: 30; Start 11/04/17 at 09:00 Morphine Sulfate (Morphine Inj) 1 mg Q1H PRN IV pain 3-5; Start 11/04/17 at 09: 00; Stop 11/04/17 at 11:20; Status DC Pantoprazole Sodium (Protonix Inj) 40 mg Q12H IV PUSH Last administered on at 12:17; Start 11/04/17 at 12:00 Acetaminophen/ Hydrocodone Bitart ([place] 5-325 Mg) 1 tab Q4H PRN PO pain 1-7 Last administered on 11/04/17at 12:17; Start 11/04/17 at 11:30 Acetaminophen/ Hydrocodone Bitart ([place] 5-325 Mg) 2 tab Q4H PRN PO pain 8-10 ; Start 11/04/17 at 11:30 Morphine Sulfate (Morphine Inj) 2 mg Q4H PRN IV PUSH PAIN >5; Start 11/04/17 at 11:30 A/P Problem List: (1) Intractable pain ICD Code: R52 - Pain, unspecified Status: Acute (2) Chest pain ICD Code: R07.9 - Chest pain, unspecified (3) Dehydration ICD Code: E86.0 - Dehydration (4) Thoracic aortic aneurysm without rupture ICD Code: I71.2 - Thoracic aortic aneurysm, without rupture Status: Acute Assessment and Plan 77-year-old female history of AAA who presented with acute on chronic abdominal pain Acute on chronic abdominal pain -Patient is more in the epigastric area. CTA showed Aorta w/ no acute abdominal or thoracic abnormality. -Most like me secondary to gastritis versus gastric ulcer. -Start Protonix. Pain control with [place]. Will give morphine if medication does not improve pain. Chest Pain: acute onset of substernal chest pain, initial trop negative. -Patient denies any chest pain with me. Pain more epigastric and constant. Cardiac enzymes negative. 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 -Discussed case with Dr. Rodriguez patient is not a surgical candidate high risk of . Dehydration: -GFR 58, BUN 36, IVF for hydration. -Resolved. DVT Prophylaxis: SCD/Teds Discharge Planning Patient agrees to hospice. Will place consult to hospice. Discussed with case management Tori Mandujano MD Nov 04, 2017 13:25
[2017-11-04] MEDS: ACETAMINOPHEN/HYDROcodone 325 MG/5 MG TAB PO PRN ×2 (17:13→23:26)
--- NOTE | 2017-11-04 18:06 | RADRPT ---
EXAM DATE/TIME: 11/04/2017 17:36 [facility] COMPARISON: No previous studies available for comparison. INDICATIONS : Back pain MEDICAL HISTORY : Aneurysm, abdominal. Cardiovascular disease Cerebrovascular disease, scoliosis SURGICAL HISTORY : Hysterectomy. Valve repair ENCOUNTER: Initial ACUITY: 1 day PAIN SCORE: 10/10 LOCATION: Lumbar spine FINDINGS: Severe scoliotic deformity is present to the left with a rotatory component. Tererro is at L3. Osseous s tructures are osteopenic. There is no evidence of acute fracture. CONCLUSION: 1. Scoliosis. There is no evidence of acute fracture. Robin Torres MD on November 04, 2017 at 18:02 Board Certified Radiologist. This report was verified electronically.
--- NOTE | 2017-11-04 18:35 | RADRPT ---
EXAM DATE/TIME: 11/04/2017 17:30 [facility] COMPARISON: HIP LEFT (AP&LAT 2/3VWS) WO AP PELVIS, August 27, 2016, 17:28. INDICATIONS : Left hip pain MEDICAL HISTORY : Aneurysm, abdominal. Cardiovascular disease Cerebrovascular disease scoliosis SURGICAL HISTORY : Hysterectomy. Valve repair ENCOUNTER: Initial ACUITY: 1 day PAIN SCORE: 10/10 LOCATION: Left femur FINDINGS: Two view examination of the left femur demonstrates 3 screws within the left femoral neck from previo us ORIF. The appearance of the femoral head and proximal femur is stable compared to previous study i n 2015. There is no ascitic U. fracture. Femur is otherwise intact. CONCLUSION: Stable left hip and femur without evidence of acute fracture. Prior ORIF of the left femoral neck. Easton Daniel MD on November 04, 2017 at 18:31 Board Certified Radiologist. This report was verified electronically.
--- NOTE | 2017-11-04 18:36 | RADRPT ---
EXAM DATE/TIME: 11/04/2017 17:30 [facility] COMPARISON: HIP LEFT (AP&LAT 2/3VWS) W AP PELVIS, August 26, 2016, 23:43. INDICATIONS : Left hip pain MEDICAL HISTORY : Aneurysm, abdominal. Cardiovascular disease Cerebrovascular disease,scoliosis SURGICAL HISTORY : Hysterectomy. Valve repair ENCOUNTER: Initial ACUITY: 1 day PAIN SCORE: 10/10 LOCATION: Left pelvis FINDINGS: Examination of the left hip was performed with AP Pelvis. 3 screws are identified in the left femoral neck from previous ORIF. The appearance of the hip is stable compared to previous study in 2016. The re is no evidence of acute fracture or dislocation. Bony pelvis appears intact. CONCLUSION: 1. No evidence of acute fracture involving the left hip or pelvis. 2. Status post ORIF of the left hip. Easton Daniel MD on November 04, 2017 at 18:33 Board Certified Radiologist. This report was verified electronically.
[2017-11-05] MEDS: MORPHINE SULFATE 2 MG/ML INJ IV PUSH PRN ×2 (02:29→06:33)
[2017-11-05 04:30] VITALS: BP 127/66; PULSE 63; RESP 18; TEMP 97.9; O2SAT 94
[2017-11-05 07:59] VITALS: PULSE 65
[2017-11-05 08:00] VITALS: BP 141/69; PULSE 64; RESP 18; TEMP 98; O2SAT 96
[2017-11-05] MEDS: METOPROLOL TARTRATE 25 MG TAB PO SCH (08:49)
[2017-11-05] MEDS: PRAVASTATIN SOD 10 MG TAB PO SCH (08:49)
[2017-11-05] MEDS: DOCUSATE SODIUM 50 MG/SENNA 8.6 MG TAB PO SCH (08:49)
[2017-11-05] MEDS: ACETAMINOPHEN/HYDROcodone 325 MG/5 MG TAB PO PRN ×2 (08:53→14:00)
[2017-11-05] MEDS: SODIUM CHLORIDE 0.9% FLUSH 10 ML FLUSH IV FLUSH SCH (08:55)
--- NOTE | 2017-11-05 10:28 | PD.CONS ---
Consult Service Palliative Care Consult Requested By Dr. Light Primary Care Physician Unknown Reason for Consultation a. To assist with evaluation and management of symptoms including: Pain b. To assist medical decision maker(s) with: better understanding of current medical conditions; weighing benefits/burdens of medical treatment options; making medical treatment decisions. HPI History of Present Illness Is a 77-year-old with past medical history significant for but not limited to, CAD(status post CABG), AAA, CVA, valvular heart disease, the cane to the hospital on 11/03/2017 for left-sided chest pain and left upper abdominal pain. Was reported that patient took aspirin prior to arrival to emergency department. Patient was given nitroglycerin but had hypotensive response and was given IV fluid bolus. In the ER: * Sodium 139, potassium 3.8, chloride 102, bicarbonate 30.2, UN is 36, creatinine 0.94 * Troponin I is less than 0.02, subsequent cardiac enzyme sets were also less than 0.02 * WBCs 5.9, hemoglobin 9.2, hematocrit 27.3, platelet is 173 * PT is 10.8, INR is 1.1, PTT is 21.5 * UA shows small amount of occult blood, negative for nitrites or leukocyte esterase. Culture is not indicated * CTA, thoracic aorta stent endovascular stent graft is identified. 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 It is noted of the distal descending thoracic aorta and suprarenal abdominal aorta. The distal descending for acid Aorta measures 5.6 cm in diameter. Abdominal aorta there is a enlargement of the aneurysm identified at suprarenal and infrarenal renal abdominal aortic. The suprarenal abdominal aorta measures 5.3 cm at the level of the celiac artery. As a 4.8 cm at the level of renal arteries and 5.7 cm in the inferolateral renal segment. 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 There are distal descending thoracic aorta the aneurysm measuring 5.3 cm, 4.8 cm. 5.7 cm at the level of celiac artery, renal arteries , infrarenal segment respectively. No subacute rupture is evident. No evidence of acute cardiopulmonary process. * Chest x-ray is stable. We'll thoracic aortic stent. Left subclavian stent. Static aortic valve. No Acute cardiopulmonary process. * In the ER vascular surgery was consulted, and patient admitted to hospitalist services. 11/04/17 vascular surgery evaluated patient. Vascular surgery stated patient has a type II AAA that "starts at the origin of the carotids and extends to the abdominal aorta. The previously placed TEVAR has an Ia endoleak and essentially is an unrepaired aneurysm. The paravisceral TAAA is large. Overall there is no evidence of rupture. However, I am not sure this is not causing her pain." Patient is not operative candidate. Vascular surgery recommend pain control and hospice services. DNR and DNI was discussed with patient and daughter and for the time being day declined. His reported that patient had met with [facility]. It was communicated to me that patient would like further workup as to her source of pain, and was not ready to transition to comfort measures. His reported the patient's pain is in the epigastric area, medical team start a Protonix and [place]. Morphine was also ordered if pain is not improved. Further imaging was ordered. Lumbar spine shows scoliosis no evidence of acute fracture. Hip pelvic x-ray shows no evidence of acute fracture. This is stable left hip and femur without evidence of acute fracture On my visit, pt stated she has lower left quadrant abdominal pain 2/10 currently , but 9-10/10 when not given pain meds. She states that she usally take aleive for it and take morphine when in the hospital. She states that she wants most decisions and plan of care to be made be discussed with her daughter Zachary. Pt currently is a DNR. Function/Cognitive Trajectory Pt lives with son. Pt has home health coming in 3 x a week to help patient with adls. Review of Systems ROS Limitations: Clinical Condition Constitutional: COMPLAINS OF: Fatigue Endocrine: DENIES: Heat/cold intolerance Eyes: DENIES: Eye pain Cardiovascular: COMPLAINS OF: Dyspnea on Exertion Psychiatric: COMPLAINS OF: Anxiety Past Family Social History Coded Allergies: codeine (Unverified Allergy, Severe, Wheezing, 11/04/17) Past Medical History HTN, AAA Repair, Aortic Valve Replacement, CABG and Tobacco Abuse Past Surgical History Hysterectomy, Aortic Valve Replacement, AAA Repair Reported Medications Amoxicillin 500 Mg Tab 500 Mg PO QID Aspirin 81 Mg Chew 81 Mg CHEW ONCE Aleve Arthritis (Naproxen Sodium) 220 Mg Tab 220 Mg PO BID Lovastatin 10 Mg Tab 10 Mg PO DAILY Amlodipine (Amlodipine Besylate) 10 Mg Tab 10 Mg PO DAILY Current Medications Medications (Trade) Dose Ordered Sig/Rohan Route Start Time Stop Time Status Last Admin (Lopressor) 25 mg Q12HR PO 11/04/17 09:00 11/05/17 08:49 (NS Flush) 2 ml UNSCH PRN IV FLUSH 11/03/17 22:45 11/04/17 04:02 (NS Flush) 2 ml BID IV FLUSH 11/04/17 09:00 11/05/17 08:55 (Zofran Inj) 4 mg Q6H PRN IVP 11/03/17 22:45 (Tylenol) 650 mg Q6H PRN PO 11/03/17 22:45 (Mariangel-Colace) 1 tab BID PO 11/04/17 09:00 11/05/17 08:49 (Milk Of Magnesia Liq) 30 ml Q12H PRN PO 11/03/17 22:45 (Senokot) 17.2 mg Q12H PRN PO 11/03/17 22:45 (Dulcolax Supp) 10 mg DAILY PRN RECTAL 11/03/17 22:45 (Lactulose Liq) 30 ml DAILY PRN PO 11/03/17 22:45 (Norvasc) 10 mg DAILY PO 11/04/17 09:00 11/05/17 08:49 (Pravachol) 10 mg DAILY PO 11/04/17 09:00 11/05/17 08:49 (Protonix Inj) 40 mg Q12H IV PUSH 11/04/17 12:00 11/04/17 23:27 ([place] 5-325 Mg) 1 tab Q4H PRN PO 11/04/17 11:30 11/04/17 12:17 ([place] 5-325 Mg) 2 tab Q4H PRN PO 11/04/17 11:30 11/05/17 08:53 (Morphine Inj) 2 mg Q4H PRN IV PUSH 11/04/17 11:30 11/05/17 06:33 Family History .PAST FAMILY HISTORY: Mom heart A. fib. Dad cancer Substance Use Tobacco: Half pack per day Alcohol: One beer daily Prescription med abuse: Denies Illicits denies: Psychosocial History x 2 and widosed x 2. Zachary (daughter) Perez (son) Yisel Ramos (step children) Jana Franco (step children) Spiritual/Cultural Factors [facility] Health Care Surrogate: Completed, but not made available (Per daughter its Zachary.) Physical Exam Vital Signs Date Time Temp Pulse Resp B/P (MAP) Pulse Ox O2 Delivery O2 Flow Rate FiO2 11/05/17 08:00 98.0 64 18 141/69 (93) 96 11/05/17 04:30 97.9 63 18 127/66 (86) 94 11/04/17 23:26 97.7 71 18 129/78 (95) 95 11/04/17 19:23 97.3 70 17 152/90 (110) 96 11/04/17 18:13 18 11/04/17 16:00 98.1 68 18 149/78 (101) 97 11/04/17 15:02 18 11/04/17 13:17 18 11/04/17 12:00 96.2 70 18 140/78 (98) 95 11/04/17 10:16 18 Exam CONSTITUTIONAL/GENERAL: This is a thin frail patien, looks older than stated age. Pain, frail TUBES/LINES/DRAINS: piv. SKIN: No jaundice, rashes, or lesions. Ecchymoses on upper extremities. No wounds seen anteriorly. Skin temperature appropriate. Not diaphoretic. HEAD: Atraumatic. Normocephalic. EYES: Pupils equal and round and reactive. Extraocular motions intact. No scleral icterus. No injection or drainage. Fundi not examined. ENT: Hearing grossly normal. Nose without bleeding or purulent drainage. Throat without visible erythema, exudates, masses, or lesions. NECK: Trachea midline. Supple, nontender. No palpable thyroid enlargement or nodularity. CARDIOVASCULAR: Irregular. No gallops, or rubs. RESPIRATORY/CHEST: Symmetric, unlabored respirations. Clear to auscultation. Breath sounds equal bilaterally. No wheezes, rales, or rhonchi. GASTROINTESTINAL: Abdomen soft, tender to palpation. BS prsent. GENITOURINARY: Without palpable bladder distension. Deleon catheter in place. MUSCULOSKELETAL: Extremities without clubbing, cyanosis, or edema. No joint tenderness or effusion noted. No calf tenderness. No mottling or clubbing. LYMPHATICS: No palpable cervical or supraclavicular adenopathy. NEUROLOGICAL: Awake and alert. Follows commands. some slurring of speech. Moves all extremities. PSYCHIATRIC: Anxious. Diagnostic Tests Laboratory Laboratory Tests Test 11/03/17 20:46 11/03/17 23:33 11/04/17 03:47 11/04/17 10:16 White Blood Count 8.0 TH/MM3 (4.0-11.0) 5.9 TH/MM3 (4.0-11.0) Red Blood Count 3.39 MIL/MM3 (4.00-5.30) 3.13 MIL/MM3 (4.00-5.30) Hemoglobin 9.9 GM/DL (11.6-15.3) 9.2 GM/DL (11.6-15.3) Hematocrit 29.5 % (35.0-46.0) 27.3 % (35.0-46.0) Mean Corpuscular Volume 87.1 FL (80.0-100.0) 87.2 FL (80.0-100.0) Mean Corpuscular Hemoglobin 29.1 PG (27.0-34.0) 29.3 PG (27.0-34.0) Mean Corpuscular Hemoglobin Concent 33.4 % (32.0-36.0) 33.6 % (32.0-36.0) Red Cell Distribution Width 13.7 % (11.6-17.2) 13.8 % (11.6-17.2) Platelet Count 220 TH/MM3 (150-450) 173 TH/MM3 (150-450) Mean Platelet Volume 7.7 FL (7.0-11.0) 7.6 FL (7.0-11.0) Neutrophils (%) (Auto) 68.0 % (16.0-70.0) 68.2 % (16.0-70.0) Lymphocytes (%) (Auto) 20.3 % (9.0-44.0) 17.9 % (9.0-44.0) Monocytes (%) (Auto) 8.6 % (0.0-8.0) 10.6 % (0.0-8.0) Eosinophils (%) (Auto) 1.1 % (0.0-4.0) 1.2 % (0.0-4.0) Basophils (%) (Auto) 2.0 % (0.0-2.0) 2.1 % (0.0-2.0) Neutrophils # (Auto) 5.5 TH/MM3 (1.8-7.7) 4.0 TH/MM3 (1.8-7.7) Lymphocytes # (Auto) 1.6 TH/MM3 (1.0-4.8) 1.1 TH/MM3 (1.0-4.8) Monocytes # (Auto) 0.7 TH/MM3 (0-0.9) 0.6 TH/MM3 (0-0.9) Eosinophils # (Auto) 0.1 TH/MM3 (0-0.4) 0.1 TH/MM3 (0-0.4) Basophils # (Auto) 0.2 TH/MM3 (0-0.2) 0.1 TH/MM3 (0-0.2) CBC Comment DIFF FINAL DIFF FINAL Differential Comment Prothrombin Time 10.8 SEC (9.8-11.6) Prothromb Time International Ratio 1.1 RATIO Activated Partial Thromboplast Time 21.5 SEC (24.3-30.1) Blood Urea Nitrogen 36 MG/DL (7-18) 27 MG/DL (7-18) Creatinine 0.94 MG/DL (0.50-1.00) 0.82 MG/DL (0.50-1.00) Random Glucose 156 MG/DL (74-106) 126 MG/DL (74-106) Calcium Level 9.0 MG/DL (8.5-10.1) 8.6 MG/DL (8.5-10.1) Magnesium Level 2.3 MG/DL (1.5-2.5) Sodium Level 139 MEQ/L (136-145) 141 MEQ/L (136-145) Potassium Level 3.8 MEQ/L (3.5-5.1) 3.3 MEQ/L (3.5-5.1) Chloride Level 102 MEQ/L (98-107) 105 MEQ/L (98-107) Carbon Dioxide Level 30.2 MEQ/L (21.0-32.0) 29.4 MEQ/L (21.0-32.0) Anion Gap 7 MEQ/L (5-15) 7 MEQ/L (5-15) Estimat Glomerular Filtration Rate 58 ML/MIN (>89) 68 ML/MIN (>89) Total Creatine Kinase 129 U/L (26-192) Creatine Kinase MB 2.0 NG/ML (0.5-3.6) Troponin I LESS THAN 0.02 NG/ML LESS THAN 0.02 NG/ML 0.02 NG/ML (0.02-0.05) Urine Color LIGHT-YELLOW (YELLW/STRAW) Urine Turbidity CLEAR (CLEAR) Urine pH 7.5 (5.0-8.5) Urine Specific [place] 1.039 (1.002-1.035) Urine Protein TRACE mg/dL (NEG-TRACE) Urine Glucose (UA) NEG mg/dL (NEG) Urine Ketones NEG mg/dL (NEG) Urine Occult Blood SMALL (NEG) Urine Nitrite NEG (NEG) Urine Bilirubin NEG (NEG) Urine Urobilinogen LESS THAN 2.0 MG/DL (LESS Urine Leukocyte Esterase NEG (NEG) Urine RBC 11 /hpf (0-3) Urine WBC LESS THAN 1 /hpf (0-5) Microscopic Urinalysis Comment CULT NOT INDICATED Total Protein 7.3 GM/DL (6.4-8.2) Albumin 3.8 GM/DL (3.4-5.0) Alkaline Phosphatase 72 U/L (45-117) Aspartate Amino Transf (AST/SGOT) 19 U/L (15-37) Alanine Aminotransferase (ALT/SGPT) 16 U/L (10-53) Total Bilirubin 0.3 MG/DL (0.2-1.0) Result Diagram: 11/04/17 1016 11/04/17 1016 Imaging Last Impressions Lumbar Spine X-Ray 11/04/17 0000 Signed Impressions: Service Date/Time: Saturday, November 04, 2017 17:36 - CONCLUSION: 1. Scoliosis. There is no evidence of acute fracture. Robin Torres MD Hip and Pelvis X-Ray 11/04/17 0000 Signed Impressions: Service Date/Time: Saturday, November 04, 2017 17:30 - CONCLUSION: 1. No evidence of acute fracture involving the left hip or pelvis. 2. Status post ORIF of the left hip. Easton Daniel MD Femur X-Ray 11/04/17 0000 Signed Impressions: Service Date/Time: Saturday, November 04, 2017 17:30 - CONCLUSION: Stable left hip and femur without evidence of acute fracture. Prior ORIF of the left femoral neck. Easton Daniel MD Chest X-Ray 11/03/[id number] Signed Impressions: Service Date/Time: Friday, November 03, 2017 20:46 - CONCLUSION: 1. Stable thoracic aortic stent graft 2. Left subclavian stent. 3. Prosthetic aortic valve 4. No evidence of acute cardiopulmonary process. Easton Daniel MD Aorta CTA 11/03/[id number] Signed Impressions: Service Date/Time: Friday, November 03, 2017 20:58 - CONCLUSION: 1. 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 2. Left subclavian stent. 3. Distal descending thoracic aorta abdominal aortic aneurysm with measurements given above. 4. Note a subacute rupture. 5. No evidence of acute cardiac pulmonary process or acute process in the abdomen. Easton Daniel MD Patient/Family Conference Present at Family Conference: patient and pt's daughter zachary. Family Conference Time (mins): 30 Family Conference Location: Bedside, Telephone Issues Discussed: * Palliative care role, purpose, approach * Additional medical, psychosocial, and spiritual history * Patients general health, functional status, and cognitive changes in the months leading up to the current hospitalization * Patient/family understanding of the current medical problems * Patient/family understanding of prognosis * Patients goals of care as best understood from advance directives and/or conversations and/or values * Current medical treatment options and benefits/burdens of those options * Likely scenarios comparing ongoing aggressive care with a transition to comfort measures only * Questions answered to the best of my ability * Palliative care contact information provided Assessment and Plan Disease Oriented Problem List: (1) Thoracic aortic aneurysm without rupture (2) Abdominal aortic aneurysm (3) Intractable pain (4) Dehydration Symptom Scale: Pertinent Non-Medical Issues Psychosocial: Spiritual: Legal: Ethical issues impacting care: Important Contacts Zachary Simons [phone]. (Surrogate/POA) reported. Prognosis This 77-year-old with extensive cardiac history, valvular heart disease, and a significant AAA currently stable, but at increase risk of rupture. Prognosis is guarded. Given hx of tracheostomy, cardiac history, strokes. Would be hospice appropriate if goals of care were comfort measures only. Code Status: No Code Plan == code. DNR/DNI == POA/ - Zachary Simons is the reported POA. she is the daughter. Perez Vincent is pt's son. == goals: Pt defers lots of decision making to daughter. Spoke with daughter on the phone and plan is to transition pt to hospice. They have schedule meeting with hospice at 1pm. == Pain: etiology unknown, chronic pain, debility. pain in left lower quandrant and some back pain. Defer to hospice managment. Thank you for the opportunity to participate in the care of Ms. Alexandra. Neno Ivan MD Nov 05, 2017 10:28
[2017-11-05] MEDS ORDERED: METO25TA3 PO (11:40)
[2017-11-05] MEDS ORDERED: HYDR-3516 PO (11:40)
[2017-11-05] MEDS ORDERED: PROT40TA PO (11:40)
--- NOTE | 2017-11-05 11:41 | HHI.DS ---
Discharge Summary Admission Date Nov 03, 2017 at 22:27 Admitting Diagnosis Intractable pain; h/o CAD; h/o TAA/AAA (1) Intractable pain ICD Code: R52 - Pain, unspecified Status: Acute (2) Chest pain ICD Code: R07.9 - Chest pain, unspecified (3) Dehydration ICD Code: E86.0 - Dehydration (4) Thoracic aortic aneurysm without rupture ICD Code: I71.2 - Thoracic aortic aneurysm, without rupture Status: Acute Brief History - From Admission This is a 77-year-old female with a PMH of HTN, AAA Repair, Aortic Valve Replacement, CABG and Tobacco Abuse was brought to the ER by EMS secondary to complaints of acute onset of chest pain and abdominal pain. Pt reports substernal chest pain, constant, severe, 8/10, non-radiating. Abdominal pain is generalized, intermittent, and 8/10. No associated nausea or vomiting. Denies SOB, fever or sick contacts. On arrival, BP 167/87, HR 92, O2 sat 99% on 2L NC. CBC essentially at baseline. Chemistry unremarkable except for BUN 36, GFR 58. Troponin negative. INR 1.1. UA negative. CXR was stable thoracic aortic stent graft, left subclavian stent, prosthetic aortic valve, no acute process. 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 Dr. Rodriguez consulted by ER physician and images reviewed, no acute leak or rupture noted, pt not a candidate for surgical intervention, c/o chest pain not felt to be secondary to aneurysm. CBC/BMP: 11/04/17 1016 11/04/17 1016 Significant Findings Laboratory Tests Test 11/03/17 20:46 11/03/17 23:33 11/04/17 03:47 11/04/17 10:16 Red Blood Count 3.39 MIL/MM3 (4.00-5.30) 3.13 MIL/MM3 (4.00-5.30) Hemoglobin 9.9 GM/DL (11.6-15.3) 9.2 GM/DL (11.6-15.3) Hematocrit 29.5 % (35.0-46.0) 27.3 % (35.0-46.0) Monocytes (%) (Auto) 8.6 % (0.0-8.0) 10.6 % (0.0-8.0) Activated Partial Thromboplast Time 21.5 SEC (24.3-30.1) Blood Urea Nitrogen 36 MG/DL (7-18) 27 MG/DL (7-18) Random Glucose 156 MG/DL (74-106) 126 MG/DL (74-106) Estimat Glomerular Filtration Rate 58 ML/MIN (>89) 68 ML/MIN (>89) Troponin I LESS THAN 0.02 NG/ML LESS THAN 0.02 NG/ML Urine Specific [place] 1.039 (1.002-1.035) Urine Occult Blood SMALL (NEG) Urine RBC 11 /hpf (0-3) Basophils (%) (Auto) 2.1 % (0.0-2.0) Potassium Level 3.3 MEQ/L (3.5-5.1) PE at Discharge GENERAL: very thin lady in NAD EYES: No scleral icterus. No injection or drainage. pinpoint pupils. NECK: Supple, trachea midline. No JVD or lymphadenopathy. CARDIOVASCULAR: Regular rate and rhythm without murmurs, gallops, or rubs. RESPIRATORY: Breath sounds equal bilaterally. No accessory muscle use. GASTROINTESTINAL: Abdomen soft, nondistended. + TTP in the epigastric area. negative for any peritoneal signs. Hospital Course 77-year-old female history of AAA who presented with acute on chronic abdominal pain Acute on chronic abdominal pain -Patient is more in the epigastric area. CTA showed Aorta w/ no acute abdominal or thoracic abnormality. -Most like me secondary to gastritis versus gastric ulcer. -Start Protonix. Pain control with [place]. Will give morphine if medication does not improve pain. Chest Pain: acute onset of substernal chest pain, initial trop negative. -Patient denies any chest pain with me. Pain more epigastric and constant. Cardiac enzymes negative. 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 -Discussed case with Dr. Rodriguez patient is not a surgical candidate high risk of . Dehydration: -GFR 58, BUN 36, IVF for hydration. -Resolved. DVT Prophylaxis: SCD/Teds Discharge Planning Pt Condition on Discharge: Guarded Discharge Disposition: Hospice/Med Facility Discharge Instructions DIET: Follow Instructions for: As Tolerated, No Restrictions Activities you can perform: Regular-No Restrictions New Medications: Pantoprazole (Protonix) 40 Mg Tab 40 MG PO BID for Reflux, #60 TAB 0 Refills Hydrocodone/Acetaminophen (Hydrocodone-Acetamin 5-325 mg) 5 Mg-325 Mg Tablet 1-2 TAB PO Q4H PRN for pain, #20 TAB 0 Refills Metoprolol Tartrate (Metoprolol Tartrate) 25 Mg Tab 25 MG PO Q12HR for hypertension, #60 TAB 0 Refills Continued Medications: Amlodipine (Amlodipine) 10 Mg Tab 10 MG PO DAILY for Blood Pressure Management, #30 TAB 0 Refills Aspirin (Aspirin) 81 Mg Chew 81 MG CHEW ONCE, #1 TAB 0 Refills Lovastatin (Lovastatin) 10 Mg Tab 10 MG PO DAILY for Cholesterol Management, #30 TAB 0 Refills Discontinued Medications: Amoxicillin (Amoxicillin) 500 Mg Tab 500 MG PO QID for Infection, TAB 0 Refills Naproxen Sodium (Aleve Arthritis) 220 Mg Tab 220 MG PO BID, TAB Tori Light MD Nov 05, 2017 11:41
[2017-11-05] MEDS: PANTOPRAZOLE SODIUM 40 MG VIAL IV PUSH SCH (11:56)
[2017-11-05 12:00] VITALS: BP 109/59; PULSE 62; RESP 18; TEMP 98.4; O2SAT 96
[2017-11-05] MEDS ORDERED: NICOTINE 14 MG/24 HR PATCH T-DERMAL SCH (13:00)
[2017-11-06] MEDS ORDERED: REMOVE OLD PATCH T-DERMAL SCH (09:00)
== END 2017-11-05 14:51 | disposition hospice, inpatient (51) ==
LOC: NEPC 20:35 → NEDA 22:27 → N06B 11-04 00:10
PROVIDERS: ADMIT Family Medicine; ATTEND Family Medicine
DX: R07.9 Chest pain, unspecified (principal); I10 Essential (primary) hypertension; I71.2 Thoracic aortic aneurysm, without rupture; I25.10 Atherosclerotic heart disease of native coronary artery without angina pectoris; E86.0 Dehydration; I71.3 Abdominal aortic aneurysm, ruptured; M41.9 Scoliosis, unspecified; Z72.0 Tobacco use; Z86.73 Personal history of transient ischemic attack (TIA), and cerebral infarction without residual deficits; Z95.1 Presence of aortocoronary bypass graft; Z95.2 Presence of prosthetic heart valve; Z90.710 Acquired absence of both cervix and uterus
CPT/HCPCS: 71045; 71275; 72100; 73502; 73552; 74174; 80048; 80053; 81001; 82550; 82552; 83735; 84484; 85025; 85610; 85730; 86850; 86900; 86901; 93005; 96374; 96375; 96376; 97162; 99291; C9113; G0378; G8987; G8988; J2270; J2405; Q9967